=== PATIENT | female | born 1985 | race Caucasian/White ===

== ENCOUNTER 2023-02-25 17:14 | Emergency (ER) | payer OTHER, SELFPAY ==
[2023-02-25 17:20] VITALS: BP 101/66; PULSE 75; RESP 18; TEMP 36.6; O2SAT 98; BMI 28.3
--- NOTE | 2023-02-25 17:25 | XR_ITS ---
The [address] [address] Patient Name: JEANNIE HAMILTON MRN: [id number] date: 1985 Sex: F Assigned Patient Location: ED.MAIN Current Patient Location: ER Accession/Order Number: [id number] Exam Date: 02/25/2023 16:10 Report Date: 02/25/2023 18:33 At the request of: ALBERTO JUNIOR Procedure: XR tibia fibula LT 2V EXAM: XR tibia fibula LT 2V HISTORY: injury COMPARISON: None. TECHNIQUE: AP and lateral views of the left tib-fib FINDINGS: No acute displaced fracture or dislocation. No radiopaque foreign bodies noted. The visualized joint spaces are preserved. No bony destruction. There is a lucency which projects over the mid lower leg on the AP view which may represent patient's known laceration. XR/XR tibia fibula LT 2V IMPRESSION: No acute bony abnormality. No radiopaque foreign bodies. Electronically authenticated by: XANDER TIWARI Date: 02/25/2023 18:33
--- NOTE | 2023-02-25 19:03 | ED.WOUNDLAC1 ---
HPI - Wound/Laceration General Chief Complaint: Wound/Laceration Stated Complaint: LOWER INJURY Time Seen by Provider: 02/25/23 17:25 Source: patient Mode of arrival: Wheelchair History of Present Illness HPI narrative: [id number] presents to the Emergency Department for laceration to her left lower leg anteriorly. It was sustained when she was running after her dog in her yard and she had some unknown object. No other injury was sustained. This happened just before the patient came to the emergency department. Related Data Allergies Allergy/AdvReac Type Severity Reaction Status Date / Time No Known Drug Allergies Allergy Verified 02/25/23 17:20 Review of Systems ROS Narrative A ten point review of systems is negative except as noted above. PFSH PFSH Social History Smoking status: Current every day smoker Exam Narrative Exam Narrative: Nurses note and vital signs reviewed and patient is not hypoxic. General: The patient appears well and in no apparent distress. Patient is resting comfortably on cart. Skin: Warm, dry, no pallor noted. There is no rash noted. Head: Normocephalic, atraumatic Eye: Normal conjunctiva, no drainage Ears, Nose, Mouth, and Throat: oral mucosa is moist. Nares patent. Cardiovascular: Regular Rate and Rhythm Respiratory: Patient is in no distress, no accessory muscle use, lungs are clear to auscultation, no wheezing, rales or rhonchi Back: non-tender GI: nontender Musculoskeletal: left lower leg anteriorly has a vertically oriented 3 cm laceration. No active bleeding or obvious foreign body. Neurological: A&O, normal speech Psychiatric: Cooperative Constitutional Vital Signs, click to edit/add: Last Vital Signs Temp 97.8 F 02/25/23 17:20 Pulse 75 02/25/23 17:20 Resp 18 02/25/23 17:20 BP 101/66 02/25/23 17:20 Pulse Ox 98 02/25/23 17:20 O2 Del Method Room Air 02/25/23 17:20 Course Vital Signs Vital signs: Vital Signs Temperature 97.8 F 02/25/23 17:20 Pulse Rate 75 02/25/23 17:20 Respiratory Rate 18 02/25/23 17:20 Blood Pressure 101/66 02/25/23 17:20 Pulse Oximetry 98 02/25/23 17:20 Oxygen Delivery Method Room Air 02/25/23 17:20 Temperature 97.8 F 02/25/23 17:20 Pulse Rate 75 02/25/23 17:20 Respiratory Rate 18 02/25/23 17:20 Blood Pressure 101/66 02/25/23 17:20 Pulse Oximetry 98 02/25/23 17:20 Oxygen Delivery Method Room Air 02/25/23 17:20 MDM - Wound/Laceration MDM Narrative Medical decision making narrative: the wound has been closed and sutures are to be removed in ten days. Treatment diagnosis and follow-up were discussed with the patient. last tetanus shot was three years ago. Differential Diagnosis Differential diagnosis: Likely laceration and other (foreign body, fracture) Discharge Plan Discharge Chief Complaint: Wound/Laceration Clinical Impression: Laceration Patient Disposition: Home, Self-Care Time of Disposition Decision: 19:02 Condition: Good Mode of Transportation: Private Vehicle Instructions: Laceration (ED) Additional Instructions: sutures to be removed in ten days Stand Alone Forms: Portal Instructions Referrals: Physician,Non-Staff, MD [Primary Care Provider] - 1 week
[2023-02-25 19:22] VITALS: PULSE 72; RESP 16; O2SAT 96
== END 2023-02-25 19:24 | disposition home or self-care (01) ==
PROVIDERS: Emergency Provider Emergency Medicine
DX: S81.812A Laceration without foreign body, left lower leg, initial encounter (principal); F17.210 Nicotine dependence, cigarettes, uncomplicated; W22.8XXA Striking against or struck by other objects, initial encounter
CPT/HCPCS: 12002; 73590; 99283